=== PATIENT | male | born 1935 | race Two or more races ===

== ENCOUNTER 2022-06-14 13:56 | Emergency (ER) | payer MEDICARE, OTHER, SELFPAY ==
--- NOTE | ~2022-06-14 | XR_ITS ---
EXAMINATION: XR CHEST CLINICAL INFORMATION: Altered mental status. COMPARISON: None TECHNIQUE: Frontal view of the chest was obtained. FINDINGS: No significant abnormality is noted involving the heart, lungs, mediastinum, bony thorax or soft tissues. XR/XR chest 1V IMPRESSION: No acute cardiopulmonary process.
--- NOTE | ~2022-06-14 | CT_ITS ---
EXAMINATION: CT HEAD WITHOUT CONTRAST (STROKE PROTOCOL) CLINICAL INFORMATION: Stroke protocol. Left-sided weakness COMPARISON: None TECHNIQUE: Contiguous axial imaging was performed from the skull base to vertex without intravenous administration of contrast. This CT examination was performed using dose optimization techniques as appropriate, variously including the following: *Automated exposure control *Adjustment of mA and/or kV according to patient size (this includes techniques or standardized protocols for targeted exams where dose is matched to indication/reason for exam; i.e. extremities or head) *Use of iterative reconstruction technique DLP: 762 mGy-cm FINDINGS: There is a right subdural hematoma which may be subacute versus acute. This measures approximately 5 mm in diameter. There is midline structure shift by approximately 4 mm to the left. No effacement of sulci identified. There is prominence of ventricles, sulci, and cisterns consistent with atrophic change. There is periventricular white matter low density consistent with microangiopathy. There is a left thalamic chronic infarct. CT/CT head for stroke IMPRESSION: 1. Right subdural hematoma which may be subacute versus acute measuring 5 mm in diameter with midline shift to the left by 4 mm. 2. 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 3. 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 This critical result was discussed with Ravi Roman at 2:20 PM hours on June 14, 2022. It was ascertained that the content and urgency of the report was understood at the time of direct communication.
--- NOTE | 2022-06-14 14:00 | ECG_ITS ---
Test Reason : ?STROKE Blood Pressure : / mmHG Vent. Rate : 070 BPM Atrial Rate : 070 BPM P-R Int : 282 ms QRS Dur : 156 ms QT Int : 452 ms P-R-T Axes : 022 -57 -01 degrees QTc Int : 488 ms Sinus rhythm with 1st degree A-V block Right bundle branch block Left anterior fascicular block Bifascicular block Abnormal ECG No previous ECGs available Referred By: Ravi Roman Electronically Signed By:ZEB COOLEY MD
--- NOTE | 2022-06-14 14:01 | ED.GENADULT ---
HPI - General Adult General Chief complaint: Stroke Stated complaint: AMS/STROKE Time Seen by Provider: 06/14/22 14:00 Source: EMS Mode of arrival: EMS Limitations: altered mental status History of Present Illness HPI narrative: 86 year old male history diabetes, dementia, cva with left sided deficits presents the emergency department from a local restaurant for altered mental status, question syncopal episode, that happened 30 minutes prior to arrival. According to EMS family member reports that patient became altered while eating, typically he is able to answer basic questions, and eat on his own however patient was becoming confused and not responding. Family became worried and called EMS. According to family members patient does have left-sided deficits from an old CVA that occurred in 2017. To the best of their knowledge patient is not on blood thinners. There is no fall or trauma reported. Unable to obtain a clear history and or physical exam as patient is not answering questions. He is responding to painful stimuli and appears to be diaphoretic upon arrival. Related Data Allergies Allergy/AdvReac Type Severity Reaction Status Date / Time No Known Allergies Allergy Verified 06/14/22 15:07 Review of Systems Review of Systems: Yes Unobtainable due to mental status PMFSH Past Medical History Attestation statement: The following information was validated with the patient. Source: old records reviewed and nursing notes reviewed Social History Social History Advance Directives: Yes Advance Directives Information Provided: No Advance Directives on File: No Physical Exam ED Vital Signs: Vital Signs - 24 hr 06/14/22 14:11 Pulse Rate 68 Respiratory Rate 15 Blood Pressure 108/54 L Pulse Oximetry 94 Oxygen Delivery Method Nasal Cannula BMI result Body Mass Index 27.3 vss Appearance: Responding to painful stimuli. Appears to be in no acute distress. Head: Normocephalic, atraumatic, no step-offs or deformities Eyes: Pupils equal, round and reactive to light on right.?Left glass eye, shut eyelid Neck: Normal inspection.? Neck supple.? CVS: Normal heart rate and rhythm.? Pulses normal.? Respiratory: No respiratory distress.? Breath sounds normal.? Abdomen: Soft and nontender.? Skin: Skin warm and dry.? Normal skin color.? Normal skin turgor.?+ diaphoresis + small bruise to right hand Extremities: No lower extremity edema.? Left-sided upper and lower extremity weakness however this is patient's baseline. Unable to assess strength to bilateral upper lower extremities due to patient's mental status. Neuro: Responding to painful stimuli with bones. Unable to answer questions, unable to follow commands. Course Reevaluation(s) Reevaluation #1: POC PT/INR wnl. POC flucose 145. Concerns for possible subdural. Family still has not arrived. Patient minimally responsive. Time: 14:13 Reevaluation #2: at the bedside tells me that has been has been having frequent falls at home she tells me that she is the primary caregiver and at times he will not tell her when he has fallen. Patient is not on any blood thinners, not taking aspirin, reports that patient has been having increased weakness over the past few weeks. She tells me that he does have a history of spontaneous bleeds in the head, last 1 was a few years ago she tells me. She reports that when they were out eating lunch he suddenly started crying reporting of pain, started to slump forward, and became minimally responsive, she tells me that he has dementia and is able to answer basic questions at baseline however after this episode he was not able to answer any questions and was barely responding. Patient had a lucid moment and states what the fuck is going on followed by ams. Time: 14:16 Reevaluation #3: Spoke to [facility] for critical result there is a right subdural question subacute versus acute and possibly mixed with some CSF it is causing 4 mm shift to the left. There is not a lot of mass effect. Measures a total 5 mm in diameter. 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 At this time [facility] called for transfer Time: 14:20 Additional Reevaluation(s): 1439 Dr. Islas [facility] trauma accepts patient at this time will be ED-ED trauma transfer 1440 CBC with slight leukocytosis 10.9 likely reactive. Chemistry, lactic, INR pending. 1521 Chemistry with no acute electrolyte abnormalities requiring intervention. Troponin 4.6 EKG nonischemic. BNP within normal limits. Lactic acid 3.8, will hydrate. COVID negative. CXR wnl. Urine pending. Pending transfer to [facility] 1530 Edgar here for transfer. Unable to obtain med list. Medical Decision Making MDM Narrative Medical decision making narrative: 1260 86-year-old male presents for sudden-onset altered mental status, and not responding to family members while eating lunch at a local restaurant. Upon physical examination patient responding to painful stimuli with left-sided deficits, noted to be diaphoretic, regular rate and rhythm, lungs clear, abdomen soft nontender nondistended. Unable to do a thorough neuro exam due to patient not being able to participate. Unable to obtain an NIH stroke scale due to patient's mental status and not being able to follow commands. Likely syncope. However will rule out intracranial hemorrhage/stroke. Will try to obtain more history from family at a later time however at this time a stat CT head for stroke has been ordered. Plan at this time is basic labs, EKG, troponin, cardiac monitoring, CT of the head, blood cultures, lactic acid I evaluated this patient with my attending at the bedside. Medical Records Medical records reviewed: Yes I reviewed the patient's medical records. Lab Data Lab results reviewed: Yes I reviewed the patient's lab results. Result diagrams: 06/14/22 14:31 06/14/22 14:31 Labs: Lab Results 06/14/22 06/14/22 06/14/22 Range/Units 14:02 14:02 14:30 WBC (4.8-10.8) X10*3/uL RBC (4.60-5.80) X10*6/uL Hgb (14.0-18.0) g/dl Hct (42.0-52.0) % MCV (80.0-98.0) fL MCH (27.0-33.0) pg MCHC (31.0-36.0) g/dl RDW (11.0-16.0) % Plt Count (160-400) X10*3/uL MPV (9.4-12.4) fL Immature Gran % (Auto) (0.0-0.4) % Neut % (Auto) (45-73) % Lymph % (Auto) (20-40) % [place] % (Auto) (2-11) % Eos % (Auto) (0-4) % Baso % (Auto) (0-2) % Lymph # (Auto) (1.2-4.9) X10*3/uL [place] # (Auto) (0.1-1.2) X10*3/uL Eos # (Auto) (0.0-0.4) X10*3/uL Baso # (Auto) (0.0-0.2) X10*3/uL Abs Immat Gran (auto) (0.00-0.03) X10*3/uL Absolute Neuts (auto) (2.0-8.3) x10*3/uL Absolute Nucleated RBC (0.0-0.012) X10*3/uL Nucleated RBC % (auto) (0.0-0.2) /100WBC PT (10.0-13.1) SEC Whole Blood PT 12.8 (11.1-13.5) sec INR (0.9-1.1) Whole Blood INR 1.1 (0.9-1.1) Sodium (135-145) mmol/L Potassium (3.3-5.1) mmol/L Chloride (96-108) mmol/L Carbon Dioxide (22-29) mmol/L Anion Gap (12-20) BUN (9-16) mg/dL Creatinine (0.5-1.4) mg/dL Estim Creat Clear Calc Estimated GFR POC Glucose 145 H (60-115) mg/dL Random Glucose (60-115) mg/dL Lactic Acid (0.5-2.0) mmol/L Calcium (8.4-10.2) mg/dL Magnesium (1.6-2.6) mg/dL Total Bilirubin (0.0-1.0) mg/dL AST (5-37) U/L ALT (0-40) U/L Alkaline Phosphatase (39-117) U/L Troponin I High Sens 4.6 (<3.5-35.0) ng/L B-Natriuretic Peptide 26 (<100) pg/mL Total Protein (6.5-8.0) g/dL Albumin (3.5-5.0) g/dL COVID-19 (ANDRZEJ) (Negative) COVID-19 Clin Com 06/14/22 06/14/22 06/14/22 Range/Units 14:30 14:31 14:31 WBC 10.9 H (4.8-10.8) X10*3/uL RBC 4.91 (4.60-5.80) X10*6/uL Hgb 13.9 L (14.0-18.0) g/dl Hct 42.3 (42.0-52.0) % MCV 86.2 (80.0-98.0) fL MCH 28.3 (27.0-33.0) pg MCHC 32.9 (31.0-36.0) g/dl RDW 14.3 (11.0-16.0) % Plt Count 413 H (160-400) X10*3/uL MPV 8.9 L (9.4-12.4) fL Immature Gran % (Auto) 0.6 H (0.0-0.4) % Neut % (Auto) 60.6 (45-73) % Lymph % (Auto) 30.0 (20-40) % [place] % (Auto) 7.1 (2-11) % Eos % (Auto) 1.1 (0-4) % Baso % (Auto) 0.6 (0-2) % Lymph # (Auto) 3.3 (1.2-4.9) X10*3/uL [place] # (Auto) 0.8 (0.1-1.2) X10*3/uL Eos # (Auto) 0.1 (0.0-0.4) X10*3/uL Baso # (Auto) 0.1 (0.0-0.2) X10*3/uL Abs Immat Gran (auto) 0.06 H (0.00-0.03) X10*3/uL Absolute Neuts (auto) 6.6 (2.0-8.3) x10*3/uL Absolute Nucleated RBC 0.000 (0.0-0.012) X10*3/uL Nucleated RBC % (auto) 0.0 (0.0-0.2) /100WBC PT 12.1 (10.0-13.1) SEC Whole Blood PT (11.1-13.5) sec INR 1.1 (0.9-1.1) Whole Blood INR (0.9-1.1) Sodium 140 (135-145) mmol/L Potassium 3.9 (3.3-5.1) mmol/L Chloride 106 (96-108) mmol/L Carbon Dioxide 20 L (22-29) mmol/L Anion Gap 18 (12-20) BUN 20 H (9-16) mg/dL Creatinine 0.93 (0.5-1.4) mg/dL Estim Creat Clear Calc 57.2 Estimated GFR > 60 POC Glucose (60-115) mg/dL Random Glucose 158 H (60-115) mg/dL Lactic Acid (0.5-2.0) mmol/L Calcium 8.9 (8.4-10.2) mg/dL Magnesium 1.7 (1.6-2.6) mg/dL Total Bilirubin 0.6 (0.0-1.0) mg/dL AST 11 (5-37) U/L ALT 11 (0-40) U/L Alkaline Phosphatase 88 (39-117) U/L Troponin I High Sens (<3.5-35.0) ng/L B-Natriuretic Peptide (<100) pg/mL Total Protein 6.8 (6.5-8.0) g/dL Albumin 4.0 (3.5-5.0) g/dL COVID-19 (ANDRZEJ) (Negative) COVID-19 Clin Com 06/14/22 06/14/22 06/14/22 Range/Units 14:31 14:31 14:50 WBC (4.8-10.8) X10*3/uL RBC (4.60-5.80) X10*6/uL Hgb (14.0-18.0) g/dl Hct (42.0-52.0) % MCV (80.0-98.0) fL MCH (27.0-33.0) pg MCHC (31.0-36.0) g/dl RDW (11.0-16.0) % Plt Count (160-400) X10*3/uL MPV (9.4-12.4) fL Immature Gran % (Auto) (0.0-0.4) % Neut % (Auto) (45-73) % Lymph % (Auto) (20-40) % [place] % (Auto) (2-11) % Eos % (Auto) (0-4) % Baso % (Auto) (0-2) % Lymph # (Auto) (1.2-4.9) X10*3/uL [place] # (Auto) (0.1-1.2) X10*3/uL Eos # (Auto) (0.0-0.4) X10*3/uL Baso # (Auto) (0.0-0.2) X10*3/uL Abs Immat Gran (auto) (0.00-0.03) X10*3/uL Absolute Neuts (auto) (2.0-8.3) x10*3/uL Absolute Nucleated RBC (0.0-0.012) X10*3/uL Nucleated RBC % (auto) (0.0-0.2) /100WBC PT (10.0-13.1) SEC Whole Blood PT (11.1-13.5) sec INR (0.9-1.1) Whole Blood INR (0.9-1.1) Sodium (135-145) mmol/L Potassium (3.3-5.1) mmol/L Chloride (96-108) mmol/L Carbon Dioxide (22-29) mmol/L Anion Gap (12-20) BUN (9-16) mg/dL Creatinine (0.5-1.4) mg/dL Estim Creat Clear Calc Estimated GFR POC Glucose (60-115) mg/dL Random Glucose (60-115) mg/dL Lactic Acid 3.8 H* (0.5-2.0) mmol/L Calcium (8.4-10.2) mg/dL Magnesium (1.6-2.6) mg/dL Total Bilirubin (0.0-1.0) mg/dL AST (5-37) U/L ALT (0-40) U/L Alkaline Phosphatase (39-117) U/L Troponin I High Sens Cancelled (<3.5-35.0) ng/L B-Natriuretic Peptide (<100) pg/mL Total Protein (6.5-8.0) g/dL Albumin (3.5-5.0) g/dL COVID-19 (ANDRZEJ) Negative (Negative) COVID-19 Clin Com See Note ECG Data Attestation: I personally reviewed and interpreted this ECG as follows: Prior ECG tracings: available for review Interpretation: Ventricular rate of 70, SC prolonged, QRS normal, QT/QTC normal. EKG with sinus rhythm with first-degree AV block. Also noted to have a right bundle-branch block a left anterior fascicular block. No previous EKGs to compare with. Critical Care Time Critical Care Time Critical Care Time: Yes Total Critical Care Time: 35 Attestation: I attest to this time spent taking care of the patient, obtaining history, physical, reviewing labs, imaging, speaking to my attending, speaking to specialist. Discharge Plan Discharge Clinical Impression: Altered mental status, Subdural bleeding, Acidosis, lactic Patient Disposition: [facility] Transfer Details: Transfer to [facility] ED Dr. Islas CT/CT head for stroke IMPRESSION: 1. Right subdural hematoma which may be subacute versus acute measuring 5 mm in diameter with midline shift to the left by 4 mm. 2. 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 3. 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
[2022-06-14 14:06] LABS: Glucose, Whole Blood 145 mg/dL (60-115)
[2022-06-14 14:07] LABS: Prothrombin Time Whole Bld POC 12.8 sec (11.1-13.5); ~PT, ~INR - Anti Coag Clinic 1.1 (0.9-1.1)
[2022-06-14 14:11] VITALS: BP 108/54; PULSE 68; RESP 15; O2SAT 94; BMI 27.3
--- NOTE | 2022-06-14 14:28 | PC.NURSE ---
@[id number] CALL PLACED TO [facility] PT TX LINE @ REQUEST OF ELENI MISHRA ANSWERS, TAKES PT INFO THEN ASKS TO SPEAK WITH FIDEL PARRA TAKES OER CALL RIGHT AWAY
[2022-06-14 14:37] LABS: MANUAL DIFF FLAG NO
--- NOTE | 2022-06-14 14:37 | PC.NURSE ---
@[phone] CALL RECEIVED FROM NOLAN OF THE [facility] PT TX LINE ASKING TO SPEAK WITH ELENI PARRA TAKES OVER CALL RIGHT AWAY
[2022-06-14 14:40] LABS: Basophils Absolute Auto 0.1 X10*3/uL (0.0-0.2); Basophils Percent Auto 0.6 % (0-2); Eosinophils Absolute Auto 0.1 X10*3/uL (0.0-0.4); Eosinophils Percent Auto 1.1 % (0-4); Hematocrit 42.3 % (42.0-52.0); Hemoglobin 13.9 g/dl (14.0-18.0); Imm Gran Abs Auto 0.06 X10*3/uL (0.00-0.03); Imm Gran Pct Auto 0.6 % (0.0-0.4); Lymphocytes Absolute Auto 3.3 X10*3/uL (1.2-4.9); Mean Corpuscular HGB Conc 32.9 g/dl (31.0-36.0); Mean Corpuscular Hemoglobin 28.3 pg (27.0-33.0); Mean Corpuscular Volume 86.2 fL (80.0-98.0); Mean Platelet Volume 8.9 fL (9.4-12.4); Monocytes Absolute Auto 0.8 X10*3/uL (0.1-1.2); Monocytes Percent Auto 7.1 % (2-11); Neutrophils Absolute Auto 6.6 x10*3/uL (2.0-8.3); Neutrophils Percent Auto 60.6 % (45-73); Platelet Count 413 X10*3/uL (160-400); Red Blood Count 4.91 X10*6/uL (4.60-5.80); Red Cell Distribution Width 14.3 % (11.0-16.0); White Blood Count 10.9 X10*3/uL (4.8-10.8)
[2022-06-14 14:47] LABS: INTERNATIONAL NORM RATIO 1.1 (0.9-1.1); Prothrombin Time 12.1 SEC (10.0-13.1)
--- NOTE | 2022-06-14 14:47 | PC.NURSE ---
PER ELENI PARRA PT IS ACCEPTED BY DR GROSS FOR ER TO ER
[2022-06-14] MEDS: 0.9 % Sodium Chloride 500 ML IV (15:06)
[2022-06-14 15:09] LABS: Alanine Aminotransferase 11 U/L (0-40); Alkaline Phosphatase 88 U/L (39-117); Anion Gap 18 (12-20); Aspartate Amino Transferase 11 U/L (5-37); Bilirubin Total 0.6 mg/dL (0.0-1.0); Blood Urea Nitrogen 20 mg/dL (9-16); Calcium 8.9 mg/dL (8.4-10.2); Carbon Dioxide 20 mmol/L (22-29); Chloride 106 mmol/L (96-108); Creatinine Clr Calc Pharmacy 57.2; Estimated Glomerular Filt Rate > 60; Glucose Random 158 mg/dL (60-115); Magnesium 1.7 mg/dL (1.6-2.6); Potassium 3.9 mmol/L (3.3-5.1); Sodium 140 mmol/L (135-145); Total Protein 6.8 g/dL (6.5-8.0)
[2022-06-14 15:16] LABS: Lactic Acid 3.8 mmol/L (0.5-2.0)
[2022-06-14 15:17] LABS: B Type Natriuretic Peptide 26 pg/mL (<100); Troponin-I High Sensitivity 4.6 ng/L (<3.5-35.0)
[2022-06-14 15:19] LABS: COVID-19 Test Negative (Negative)
== END 2022-06-14 15:40 | disposition short-term general hospital (02) ==
PROVIDERS: Physician Assistant; Emergency Provider Emergency Medicine
DX: I62.00 Nontraumatic subdural hemorrhage, unspecified (principal); Z91.81 History of falling; E11.9 Type 2 diabetes mellitus without complications; I69.354 Hemiplegia and hemiparesis following cerebral infarction affecting left non-dominant side; Z20.822 Contact with and (suspected) exposure to COVID-19
CPT/HCPCS: 36415; 70450; 71045; 80053; 82947; 83605; 83735; 83880; 84484; 85025; 85610; 87040; 87635; 93005; 99285